=== PATIENT | female | born 1965 | race Caucasian/White ===

== ENCOUNTER → 2024-07-20 | Outpatient (CLI) | payer OTHER, SELFPAY ==
--- NOTE | 2024-07-20 08:19 | EKG12_ITS ---
Test Reason : PREOP Blood Pressure : */* mmHG Vent. Rate : 92 BPM Atrial Rate : 92 BPM P-R Int : 148 ms QRS Dur : 78 ms QT Int : 344 ms P-R-T Axes : 80 76 51 degrees QTcB Int : 425 ms Normal sinus rhythm Normal ECG Confirmed by BILLY RENAE, MILADIS ([id number]), advertising editor AG VILLARREAL ([id number]) on 07/24/2024 7:54:42 AM Referred By: Donovan Duggan Confirmed By: MILADIS CERVANTES MD
[2024-07-20 08:46] LABS: Absolute Lymphocyte Count 1.01 X10^3/uL (0.83-4.51); Basophil# 0.04 X10^3/uL; Basophil% 0.7 % (0-1); Eosinophil# 0.06 X10^3/uL; Hematocrit 40.8 % (37-47); Hemoglobin 13.1 g/dL (12.0-15.0); Lymphocyte # 1.01 X10^3/ul (0.83-4.51); Lymphocyte % 17.4 % (19-41); Mean Corp Hgb Conc 32.1 g/dL (32-36); Mean Corpuscular Hgb 29.3 pg (27.0-32.0); Mean Corpuscular Volume 91.3 fL (81-99); Mean Platelet Vol. 10.7 fl (6.2-12.0); Monocyte# 0.67 X10^3/uL; Monocyte% 11.5 % (0-10); NRBC Flagged by Analyzer 0 % (0-5); Neutrophil # 4.02 X10^3/uL (2.7-7.7); Neutrophil % 69.2 % (47-70); Platelet Count 283 K/mm3 (150-450); RBC Distribution Width CV 13.8 % (11.6-14.6); RBC Distribution Width SD 46.2 fl (35.1-43.9); Red Blood Count 4.47 M/mm3 (4.2-5.4); White Blood Count 5.8 K/mm3 (4.4-11.0)
[2024-07-20 08:51] LABS: Anion Gap 4 (5-15); BUN 13 mg/dL (7-18); BUN/Creat Ratio 16.1 RATIO (10-20); Calcium,Total 9.9 mg/dL (8.5-10.1); Chloride 104 mmol/L (98-107); Creatinine, Serum 0.81 mg/dL (0.55-1.02); EST Glomerular Filtration Rate 77 mL/min (>60); Est Glom Filt Rate - Afr Amer 93 mL/min (>60); Glucose 111 mg/dL (74-106); Potassium 3.4 mmol/L (3.5-5.1); Sodium Level 138 mmol/L (136-145)
== END | disposition home or self-care (01) ==
LOC: PSN 08:05
PROVIDERS: PCP Family Medicine; Referring Provider Student in an Organized Health Care Education/Training Program; Visit Provider Student in an Organized Health Care Education/Training Program
DX: Z01.818 Encounter for other preprocedural examination (principal); Z01.810 Encounter for preprocedural cardiovascular examination
CPT/HCPCS: 36415; 80048; 85025; 93005

== ENCOUNTER 2024-07-30 11:58 | Emergency (ER) | payer OTHER, SELFPAY ==
[2024-07-30 12:00] VITALS: BP 114/79; PULSE 110; RESP 16; TEMP 36.6; O2SAT 100; BMI 20.2
--- NOTE | 2024-07-30 12:34 | CT_ITS ---
STUDY: CT ABDOMEN AND PELVIS WITH CONTRAST - URINARY TRACT REASON FOR EXAM: Female, 59 years old. Abdominal pain RADIATION DOSAGE (If Supplied By Facility): CTDIvol = ( 11.14 ) mGy, DLP = ( 459.74 ) mGycm TECHNIQUE: IV 100mL Isovue-370 was administered. Transaxial images were obtained from the dome of the diaphragm to the symphysis pubis in the arterial, nephrographic and excretory phases. Multiplanar coronal and sagittal images were reformatted. The protocol utilizes one or more of the following dose reduction techniques: automated exposure control, adjustment of mA and/or kV according to patient size,and/or use of iterative reconstruction technique. COMPARISON: No relevant prior comparison study available FINDINGS: The visualized lung bases are unremarkable. The visualized portions of the heart are within normal limits. There is a too small to characterize low-attenuation focus within the left hepatic lobe which may reflect a cyst or hemangioma. Normal gallbladder and extrahepatic biliary system. Normal spleen. Normal pancreas. Normal bilateral adrenal glands. Normal visualized stomach. There is fluid throughout the small bowel associated with circumferential wall thickening. There is fluid throughout the colon. The appendix is visualized and appears normal. Normal abdominal aorta. No retroperitoneal adenopathy. Normal right kidney. Normal left kidney. Normal urinary bladder. Normal abdominal wall. Normal osseous structures. CT/Abdomen/Pelvis W IV Cont ONLY IMPRESSION: Finding suggestive of enterocolitis. Electronically Signed: Africa Johnson MD at 14:04 EST ,
--- NOTE | 2024-07-30 12:34 | EX.ED.DYSGE1 ---
HPI <DARSHAN Alcantar - Last Filed: 07/30/24 14:35> History of Present Illness Chief Complaint: Abd Pain Narrative Narrative: Patient is a 59-year-old female history of anxiety, hypothyroidism who recently had surgery to the right rotator cuff 3 days ago. Patient states that over the last 48 hours, she has had significant abdominal pain. Patient states that her abdomen is distended, hard, and she is here for evaluation. Last BM was 2 days ago. Patient is a long history of ulcerative colitis and is never constipated. Patient states has been having ongoing nausea and is having difficulty even keeping water down. She called the office and was told to go to the emergency department. Denies any fever chills nausea or vomiting. PFSH <DARSHAN Alcantar - Last Filed: 07/30/24 14:35> PFSH Home Medications ?Medication ?Instructions ?Recorded ?Last Taken ?Type levothyroxine 200 mcg tablet 200 mcg PO DAILY 05/25/17 Unknown History (Synthroid) lorazepam 0.5 mg tablet 0.5 mg PO BID 05/25/17 Unknown History ondansetron HCl 8 mg tablet 8 mg PO Q8H PRN Nausea #15 tabs 05/25/17 Unknown Rx (Zofran) ondansetron 4 mg disintegrating 4 mg PO Q8H PRN PRN Nausea #10 tabs 07/30/24 Unknown Rx tablet prednisone 20 mg tablet 40 mg (2 x 20 mg) PO DAILY 4 days 07/30/24 Unknown Rx #8 tabs Allergy/AdvReac Type Severity Reaction Status Date / Time prednisone Allergy Mild Other Verified 07/30/24 12:00 Surgical History (Updated 07/30/24 @ 12:29 by Marissa Salgado) S/P rotator cuff repair Social History Smoking Status: Never smoker ROS <DARSHAN Alcantar - Last Filed: 07/30/24 14:35> ROS ED ROS Narrative Constitutional: Negative for fever, chills, weight loss, weakness Eyes: Negative for vision loss, vision change, double vision ENT: Negative for any sore throat, ear pain, congestion Cardiovascular: Negative for any chest pain, tightness, palpitations Respiratory: Negative for any cough, sputum production, hemoptysis, dyspnea, dyspnea on exertion, orthopnea Gastrointestinal: Negative for any diarrhea, constipation, blood in stool, blood in vomit. Positive for abdominal pain, nausea and vomit : Negative for any urinary frequency, dysuria, retention, blood in urine Muscle skeletal: Negative for any neck pain, back pain Neurological: Negative for any headache, syncope, dizziness Skin: Negative for any rashes, itching, abrasions, lacerations Psychiatric: Negative for any depression, anxiety, stress, suicidal ideation, homicidal ideation Hematologic: Negative for any excessive bruising, easy bleeding EXAM <DARSHAN Alcantar - Last Filed: 07/30/24 14:35> Physical Exam Narrative Exam Narrative: Vital signs reviewed. HEET: Head normocephalic atraumatic, TMs clear bilaterally. Posterior pharynx is clear, moist mucous membranes. Nares clear bilaterally. Neck: Supple with no lymphadenopathy or tenderness. No signs of meningismus. Cardiac: Regular rate and rhythm no murmurs gallops or rubs, equal peripheral pulses bilaterally. Respiratory: Lungs clear to auscultation bilaterally. No chest tenderness. Abdomen: It was difficult, the patient could not lay flat. Her patient did have some diffuse abdominal pain, and is slightly distended. Hypoactive bowel sounds. Have there is no peritoneal signs. No abdominal bruit or pulsatile masses. No hepatosplenomegaly Extremities: No peripheral edema, no signs of gross trauma or deformity. Active full range of motion of all extremities. Neuro: Cranial nerves II through XII intact, no focal neurological deficits. Skin: Clean dry and intact with no rash, purpura, petechiae, vesicles or pustules. Backs/flank: No CVA tenderness, no midline spinal tenderness, no deformity. Psych: Normal mood and affect. No SI, HI or acute psychosis. Const Vital Signs: 07/30/24 12:00 07/30/24 13:35 Temperature 97.8 F Temperature Source Temporal Pulse Rate 110 H 100 Respiratory Rate 16 18 Blood Pressure 114/79 105/71 Blood Pressure Mean 90 82 Pulse Ox 100 100 Oxygen Delivery Method Room Air Room Air <Dr. Larry Huddleston DO - Last Filed: 07/30/24 15:55> Physical Exam Const Vital Signs: 07/30/24 12:00 07/30/24 13:35 Temperature 97.8 F Temperature Source Temporal Pulse Rate 110 H 100 Respiratory Rate 16 18 Blood Pressure 114/79 105/71 Blood Pressure Mean 90 82 Pulse Ox 100 100 Oxygen Delivery Method Room Air Room Air [facility] <Chintan VegaDARSHAN - Last Filed: 07/30/24 14:35> [facility] Lab Data Labs: Laboratory Results - last 24 hr 07/30/24 12:30 WBC 9.2 RBC 3.75 L Hgb 11.3 L Hct 35.1 L MCV 93.6 MCH 30.1 MCHC 32.2 RDW Std Deviation 45.7 H RDW Coeff of [place] 13.4 Plt Count 207 MPV 10.8 Immature Gran % (Auto) 0.900 Neut % (Auto) 75.9 H Lymph % (Auto) 8.9 L Miner % (Auto) 13.3 H Eos % (Auto) 0.7 Baso % (Auto) 0.3 Absolute Neuts (auto) 7.0 Absolute Lymphs (auto) 0.82 L Nucleated RBC % 0 Differential Comment Dohle Bodies 1+ Platelet Estimate ADEQUATE RBC Morphology NORM C+C Sodium 138 Potassium 3.5 Chloride 109 H Carbon Dioxide 24.0 Anion Gap 6 BUN 10 Creatinine 0.69 Estim Creat Clear Calc 71.66 Est GFR (MDRD) Af Amer 112 Est GFR (MDRD) Non-Af 93 BUN/Creatinine Ratio 14.6 Glucose 114 H Calcium 9.9 Total Bilirubin 0.30 AST 8 L ALT 12 L Alkaline Phosphatase 64 Total Protein 6.9 Albumin 3.0 L Globulin 3.9 Albumin/Globulin Ratio 0.8 L Lipase 32 Radiography Diagnostic Testing: Clinical Impression(s) from Imaging Studies Abdomen/Pelvis CT 07/30/24 12:34 IMPRESSION: Finding suggestive of enterocolitis. Electronically Signed: Africa Johnson MD at 14:04 EST , Treatment and Re-Evaluation :: Differential diagnosis includes however is not limited to: Bowel obstruction, UC flare, dehydration, electrolyte abnormality, nociception, bowel perforation, diverticulitis, constipation Patient appears generally well, vital signs are stable, patient is nontoxic-appearing. Presenting to the emergency department with abdominal pain, bloating, nausea and vomiting post surgery. Patient will receive basic laboratory values, IV fluids, IV Zofran. I did offer pain medicine however she refused at this time. CT scan of the abdomen pelvis will be completed. Patient will be reevaluated. All radiologic examinations were read, reviewed by the emergency department attending. From these reads, a plan of care will be put in place. Patient's laboratory values showed a normal CBC, patient's chemistries were unremarkable, lipase was negative. Patient on reevaluation was feeling improved after IV fluids, Zofran and morphine. Patient CT scan of the abdomen pelvis shows finding suggestive of enterocolitis. We did speak with the patient, we do not believe that this is bacterial. This could be the patient's autoimmune disease. Patient would like to be treated with steroids. We did have a long conversation secondary to the recent surgery. Steroids do decrease the patient's healing as well as increase concern for infection. However patient states that the abdominal pain is too great and would like treatment. Patient was given 60 mg of Solu-Medrol here, 40 mg daily for 4 days. She will return for any worsening symptoms. All questions answered, stable for discharge. I will also provide the patient with Zofran. <Dr. Larry Huddleston, DO - Last Filed: 07/30/24 15:55> [facility] Lab Data Labs: Laboratory Results - last 24 hr 07/30/24 12:30 WBC 9.2 RBC 3.75 L Hgb 11.3 L Hct 35.1 L MCV 93.6 MCH 30.1 MCHC 32.2 RDW Std Deviation 45.7 H RDW Coeff of [place] 13.4 Plt Count 207 MPV 10.8 Immature Gran % (Auto) 0.900 Neut % (Auto) 75.9 H Lymph % (Auto) 8.9 L Miner % (Auto) 13.3 H Eos % (Auto) 0.7 Baso % (Auto) 0.3 Absolute Neuts (auto) 7.0 Absolute Lymphs (auto) 0.82 L Nucleated RBC % 0 Differential Comment Dohle Bodies 1+ Platelet Estimate ADEQUATE RBC Morphology NORM C+C Sodium 138 Potassium 3.5 Chloride 109 H Carbon Dioxide 24.0 Anion Gap 6 BUN 10 Creatinine 0.69 Estim Creat Clear Calc 71.66 Est GFR (MDRD) Af Amer 112 Est GFR (MDRD) Non-Af 93 BUN/Creatinine Ratio 14.6 Glucose 114 H Calcium 9.9 Total Bilirubin 0.30 AST 8 L ALT 12 L Alkaline Phosphatase 64 Total Protein 6.9 Albumin 3.0 L Globulin 3.9 Albumin/Globulin Ratio 0.8 L Lipase 32 Radiography Diagnostic Testing: Clinical Impression(s) from Imaging Studies Abdomen/Pelvis CT 07/30/24 12:34 IMPRESSION: Finding suggestive of enterocolitis. Electronically Signed: Africa Johnson MD at 14:04 EST , Treatment and Re-Evaluation :: Differential diagnosis includes however is not limited to: Bowel obstruction, UC flare, dehydration, electrolyte abnormality, nociception, bowel perforation, diverticulitis, constipation Patient appears generally well, vital signs are stable, patient is nontoxic-appearing. Presenting to the emergency department with abdominal pain, bloating, nausea and vomiting post surgery. Patient will receive basic laboratory values, IV fluids, IV Zofran. I did offer pain medicine however she refused at this time. CT scan of the abdomen pelvis will be completed. Patient will be reevaluated. All radiologic examinations were read, reviewed by the emergency department attending. From these reads, a plan of care will be put in place. Patient's laboratory values showed a normal CBC, patient's chemistries were unremarkable, lipase was negative. Patient on reevaluation was feeling improved after IV fluids, Zofran and morphine. Patient CT scan of the abdomen pelvis shows finding suggestive of enterocolitis. We did speak with the patient, we do not believe that this is bacterial. This could be the patient's autoimmune disease. Patient would like to be treated with steroids. We did have a long conversation secondary to the recent surgery. Steroids do decrease the patient's healing as well as increase concern for infection. However patient states that the abdominal pain is too great and would like treatment. Patient was given 60 mg of Solu-Medrol here, 40 mg daily for 4 days. She will return for any worsening symptoms. All questions answered, stable for discharge. I will also provide the patient with Zofran. ED attending note: I evaluated the patient in conjunction with the KATHRINE. I agree with his/her statements and above findings. I have personally performed a face to face assessment of the patient and have reviewed the KATHRINE Note. I performed a substantive portion of the visit including all aspects of the following. I personally saw the patient performed chart review, physical exam, reviewed labs, imaging (if obtained), and formulated a treatment and management plan. This note was generated with [employer] dictation software. It may contain incorrect words, spelling, and punctuation that were not noted in review of the chart prior to signing. Discharge Plan Triage Chief Complaint: Abd Pain ED Midlevel Provider: Chintan Vega ED Provider: Larry Huddleston Dx/Rx/DC Orders Clinical Impression: Abdominal pain, Enterocolitis Instructions: ED Gastroenteritis, Noninfectious, ED Ulcerative Colitis Prescriptions: New ondansetron 4 mg tablet,disintegrating 4 mg PO Q8H PRN PRN (Reason: Nausea) Qty: 10 0RF prednisone 20 mg tablet 40 mg PO DAILY 4 Days Qty: 8 0RF No Action lorazepam 0.5 MG tablet 0.5 mg PO BID levothyroxine [Synthroid] 200 MCG tablet 200 mcg PO DAILY ondansetron HCl [Zofran] 8 MG tablet 8 mg PO Q8H PRN (Reason: Nausea) Qty: 15 0RF Primary Care Provider: Matthew Aguilar Referrals: Matthew Aguilar MD [Primary Care Provider] - Activity Restrictions/Additional Instructions: You do not need to take any prednisone today because you are receiving some IV. Take the prednisone 40 mg daily for 4 days. You need to follow-up with the orthopedic surgeon and watch out for signs of infection. Print Language: Maori Disposition Disposition: Home, Self Care Discharge Date/Time: 07/30/24 14:48
[2024-07-30] MEDS: Ondansetron 4 MG/2 ML Vial IV (12:39)
[2024-07-30] MEDS: 0.9% Normal Saline (1000mL) 1,000 ML 999 ML IV (12:39)
[2024-07-30 12:42] LABS: Absolute Lymphocyte Count 0.82 X10^3/uL (0.83-4.51); Basophil# 0.03 X10^3/uL; Basophil% 0.3 % (0-1); Eosinophil# 0.06 X10^3/uL; Eosinophils% 0.7 % (0-5); Hematocrit 35.1 % (37-47); Hemoglobin 11.3 g/dL (12.0-15.0); Lymphocyte # 0.82 X10^3/ul (0.83-4.51); Lymphocyte % 8.9 % (19-41); Mean Corp Hgb Conc 32.2 g/dL (32-36); Mean Corpuscular Hgb 30.1 pg (27.0-32.0); Mean Corpuscular Volume 93.6 fL (81-99); Mean Platelet Vol. 10.8 fl (6.2-12.0); Monocyte# 1.22 X10^3/uL; Monocyte% 13.3 % (0-10); NRBC Flagged by Analyzer 0 % (0-5); Neutrophil # 6.99 X10^3/uL (2.7-7.7); Neutrophil % 75.9 % (47-70); POSITIVE MORPHOLOGY YES; Platelet Count 207 K/mm3 (150-450); RBC Distribution Width CV 13.4 % (11.6-14.6); RBC Distribution Width SD 45.7 fl (35.1-43.9); Red Blood Count 3.75 M/mm3 (4.2-5.4); White Blood Count 9.2 K/mm3 (4.4-11.0)
[2024-07-30 12:43] LABS: Differential Indicated SCAN CRITERIA MET
[2024-07-30 13:07] LABS: ALB/GLOB Ratio 0.8 RATIO (0.9-2.4); AST(SGOT) 8 U/L (15-37); Alanine Aminotransfer ALT/SGPT 12 U/L (13-56); Alkaline Phosphatase 64 U/L (45-117); Anion Gap 6 (5-15); BUN 10 mg/dL (7-18); BUN/Creat Ratio 14.6 RATIO (10-20); Calcium,Total 9.9 mg/dL (8.5-10.1); Chloride 109 mmol/L (98-107); Creatinine, Serum 0.69 mg/dL (0.55-1.02); EST Glomerular Filtration Rate 93 mL/min (>60); Est Glom Filt Rate - Afr Amer 112 mL/min (>60); Estimated Creatinine Clearance 71.66 ml/min; Globulin 3.9 g/dL (2.2-4.2); Glucose 114 mg/dL (74-106); Lipase 32 U/L (13-75); Potassium 3.5 mmol/L (3.5-5.1); Protein, Total 6.9 g/dL (6.4-8.2); Sodium Level 138 mmol/L (136-145)
[2024-07-30 13:24] LABS: Dohle Bodies 1+; Platelet Estimate ADEQUATE (ADEQ)
[2024-07-30 13:25] LABS: Red Cell Morphology NORM C+C NORMAL (NORM C&C)
[2024-07-30] MEDS: Morphine 4 MG/ML Syringe IV (13:32)
[2024-07-30 13:35] VITALS: BP 105/71; PULSE 100; RESP 18; O2SAT 100
[2024-07-30] MEDS: MethylPREDNISolone 125 MG/2 ML Vial 60 MG IV (14:45)
== END 2024-07-30 14:48 | disposition home or self-care (01) ==
PROVIDERS: Nurse Practitioner; Emergency Provider Emergency Medicine; PCP Family Medicine; Referring Provider Emergency Medicine; Visit Provider Emergency Medicine
DX: K52.9 Noninfective gastroenteritis and colitis, unspecified (principal)
CPT/HCPCS: 74177; 80053; 83690; 85025; 96374; 96375; 99283; J7030; Q9967; A4216; J2405

== ENCOUNTER → 2025-06-11 | Outpatient (CLI) | payer OTHER, SELFPAY ==
[2025-06-11 10:29] LABS: CPK Total, Creatine Kinase 281 U/L (24-195)
[2025-06-12 18:08] LABS: ANA-Nucleolar Pattern 1:160 (.); Anti-dsDNA Ab 5 IU/mL (0-9)
== END | disposition home or self-care (01) ==
LOC: MTLAB 08:49
PROVIDERS: PCP Family Medicine; Referring Provider Dermatology; Visit Provider Dermatology
DX: L30.9 Dermatitis, unspecified (principal)
CPT/HCPCS: 36415; 82085; 82550; 86038; 86225